=== PATIENT | female | born 1990 | race Caucasian/White ===

== ENCOUNTER 2024-02-23 01:58 | Emergency (ER) | payer BC, SELFPAY ==
[2024-02-23 02:01] VITALS: BP 134/78
--- NOTE | 2024-02-23 02:13 | ED.GENMED ---
History of Present Illness
<NORA Huynh - Last Filed: 02/23/24 02:23>
General
Chief Complaint: Abdominal Pain
Source: patient
Time Seen by Provider: 02/23/24 02:06
Nursing documentation reviewed up to this point in time: agreed with
History of Present Illness
History of Present Illness:
Pt is a 34 yo F who presents to the emergency department with abdominal pain that began around 8:30pm. Pt states that the pain began in her epigastric region when she was laying down and when to bed. She states that she woke up during the night due
to the pain being sharp and radiating to below her right scapula. She states that she took Pepto Bismol before going to bed and 1 Tums before arriving to the ED without any relief. Pt describes the pain as sharp. Pt also admits to nausea with the
pain. Pt denies fever, chills, vomiting, diarrhea, headache, chest pain.
Pt states that a similar episode happened around three years ago and that she did not seek medical attention due to being in another state at the time.
Review of Systems
<NORA Huynh - Last Filed: 02/23/24 02:23>
Review of Systems
Allergies reviewed?: Yes
Constitutional: Reports no symptoms
Respiratory: Reports no symptoms
Cardiac: Reports no symptoms
ABD/GI: Reports abdominal pain and nausea
: Reports no symptoms
Skin: Reports no symptoms
Neurological: Reports no symptoms
Phy Exam
<NORA Huynh - Last Filed: 02/23/24 02:23>
General Physical Exam
General Presentation: moderate distress
General age: appears stated age
General Skin: warm
General Habitus: normal
General Mental: alert
General Hydration: appears well hydrated
Cardiovascular Exam
Cardiovascular Exam: regular rate/rhythm
Pulmonary Exam
Pulmonary Exam: lungs clear
Gastrointestinal Exam
Gastrointestinal Exam: normal bowel sounds, soft, non distended and tender
Palpation: right upper quadrant: Severe tenderness (RUQ and epigastric region) and generalized: Severe tenderness (RUQ and epigastric region)
Course
<Shannon Valenzuela [facility] - Last Filed: 02/23/24 02:23>
Orders/Labs/Results
Orders:
Orders
02/23/24 02:18
Test Result ONCE
US Abdomen Complete/Upper Urgent
Comment:
Reason For Exam: ruq abd pain
02/23/24 03:25
Urinalysis Reflex To Culture Urgent
Date Specimen was Collected: 02/23/24
Time Specimen was Collected: 03:24
02/23/24 03:30
Complete Blood Count/With Diff Urgent
Comprehensive Metabolic Panel Urgent
HCG, Serum Qualitative Screen Urgent
Lipase Urgent
02/23/24 05:00
Pantoprazole [Protonix] 40 mg PO NOW STA
Sucralfate Suspension [Carafate Suspension] 1 gm PO NOW STA
Abnormal Lab Results
02/23/24
03:30
RBC 4.13 L 10^6/uL
(4.20-5.40)
MCH 31.2 H pg
(27.0-31.0)
MCHC 32.7 L g/dL
(33.0-37.0)
RDW 11.4 L %
(11.5-14.5)
Absolute Monos (auto) 0.7 H 10^3/uL
(0.1-0.6)
Glucose 100 H mg/dl
(70-99)
02/23/24 03:30
02/23/24 03:30
Vital Signs
Initial and Last Documented VS:
Initial Vital Signs
Temp Pulse Resp BP Pulse Ox
98.2 F 78 20 134/78 100
02/23/24 02:01 02/23/24 02:01 02/23/24 02:01 02/23/24 02:01 02/23/24 02:01
Last Documented Vital Signs
Temp Pulse Resp BP Pulse Ox
98.2 F 58 14 92/52 100
02/23/24 02:01 02/23/24 03:31 02/23/24 03:31 02/23/24 03:31 02/23/24 03:31
<Don Hand, DO - Last Filed: 02/23/24 05:07>
Orders/Labs/Results
Orders:
Orders
02/23/24 02:18
Test Result ONCE
US Abdomen Complete/Upper Urgent
Comment:
Reason For Exam: ruq abd pain
02/23/24 03:25
Urinalysis Reflex To Culture Urgent
Date Specimen was Collected: 02/23/24
Time Specimen was Collected: 03:24
02/23/24 03:30
Complete Blood Count/With Diff Urgent
Comprehensive Metabolic Panel Urgent
HCG, Serum Qualitative Screen Urgent
Lipase Urgent
02/23/24 05:00
Pantoprazole [Protonix] 40 mg PO NOW STA
Sucralfate Suspension [Carafate Suspension] 1 gm PO NOW STA
Abnormal Lab Results
02/23/24
03:30
RBC 4.13 L 10^6/uL
(4.20-5.40)
MCH 31.2 H pg
(27.0-31.0)
MCHC 32.7 L g/dL
(33.0-37.0)
RDW 11.4 L %
(11.5-14.5)
Absolute Monos (auto) 0.7 H 10^3/uL
(0.1-0.6)
Glucose 100 H mg/dl
(70-99)
02/23/24 03:30
02/23/24 03:30
Vital Signs
Initial and Last Documented VS:
Initial Vital Signs
Temp Pulse Resp BP Pulse Ox
98.2 F 78 20 134/78 100
02/23/24 02:01 02/23/24 02:01 02/23/24 02:01 02/23/24 02:01 02/23/24 02:01
Last Documented Vital Signs
Temp Pulse Resp BP Pulse Ox
98.2 F 58 14 92/52 100
02/23/24 02:01 02/23/24 03:31 02/23/24 03:31 02/23/24 03:31 02/23/24 03:31
<NORA Huynh - Last Filed: 02/23/24 02:23>
MDM/Problems Addressed
Differential Diagnosis Includes:
Cholecystis, acute pancreatitis, GERD
<NORA Huynh - Last Filed: 02/23/24 02:23>
*Critical Care Note
Total Time (30-74mins, 75-104mins- exclusive of procedures): Not Applicable
<Don Hand DO - Last Filed: 02/23/24 05:07>
Update Note
Update Note:
Ultrasound abdomen complete
IMPRESSION:
No acute findings
Gallbladder appears normal. No appreciable gallstones or sludge within the gallbladder
Gallbladder is distended, measuring up to 4.5 cm in diameter
Nonspecific. Can be seen with fasting state
No gallbladder wall thickening or pericholecystic fluid
Negative sonographic Warren's sign per report
No bile duct dilation.
Visualized pancreas and liver appear normal
Small echogenic nonshadowing focus in the left kidney, suggesting angiomyolipoma
Otherwise kidneys appear normal
Spleen appears normal
No appreciable free fluid
Report faxed directly to ER at 3:35 AM ET
ED Attending Note
<NORA Huynh - Last Filed: 02/23/24 02:23>
-
Portions of this chart may have been created with voice recognition software.� Occasional wrong word or��sound alike� substitutions may have occurred due to the inherent limitations of voice recognition software.
<Don Hand DO - Last Filed: 02/23/24 05:07>
ED Attending Note
Patient seen and examined by attending physician: Yes
I performed the substantive portion of visit, reviewed & personally made and approve the management plan that is documented in note by myself or STEPHANIE.: Yes
ED Attending Note:
Pleasant 34-year-old female presents with upper abdominal pain that radiates through to her back that began around 8:30 PM last evening. Denies chest pain or shortness of breath. She does have some nausea present. Pain was exacerbated by laying
down. She woke up with sharp pain that radiates through to her scapula. She did take some Pepto-Bismol and Tums prior to arrival and did not report any relief. Patient denies vomiting but does have some nausea. Denies shortness of breath. She
states that a similar episode happened 3 years ago. She was advised to follow-up with GI but due to insurance reasons was unable to.
Discharge Plan
Departure
Patient Disposition: Home (Routine Discharge)
Date of Disposition: 02/23/24
Time of Disposition: 05:02
Patient with high blood pressure during this ER visit?: Yes
Condition: Serious
Discharge Problem:
Abdominal pain, Gastric reflux syndrome
Prescriptions:
New
sucralfate [Carafate] 100 mg/mL suspension
10 ml PO ACHS Qty: 200 0RF
pantoprazole [Protonix] 40 mg tablet,delayed release (DR/EC)
40 mg PO DAILY Qty: 20 0RF
Referrals:
NONE,* [Family Provider] -
Ariel Ambrocio MD [Active] - As needed (Surgery)
Pooja Holloway MD [Active] - Call in 1-3 days for appt (GI)
Activity Restrictions/Additional Instructions:
It was a pleasure meeting you and taking part in your care. We hope for your continued healing and wellness.
Please read discharge instructions in their entirety. However, they are for general education and may not describe your exact diagnosis at discharge. Information on your ER visit and medical conditions were discussed with you along with appropriate
follow up information...
If indicated, please take your medications as instructed and indicated on discharge paperwork.
Please schedule a follow up appointment as directed. Call to schedule an appointment
Please return to the emergency department with ANY change in, persisting, or worsening of symptoms. If any of your symptoms do not improve, or persist, or become more severe within 6-12 hours, please return to the emergency department for further
care.
Please return to the emergency department if you develop a headache, neck pain/stiffness, fever greater than 100.4F, chest pain, shortness of breath, persistent nausea, vomiting, slurred speech, difficulty walking, numbness/tingling, weakness, signs
of infection or any other symptoms that are worrisome to you.
If you have any questions or concerns please do not hesitate to call the Hospital at or E-mail me directly at [email or web address]
Interventions
Interventions:
*Risk Screen - Suicide Last Done: 02/23/24 02:01
*General Assessment Last Done: 02/23/24 02:24
*Neglect/Abuse Screening Last Done: 02/23/24 02:01
ED- Fall Risk Assessment Last Done: 02/23/24 03:35
*ED COVID-19 Vaccine History Last Done: 02/23/24 02:24
BF-Xaczuu-Jdqjemdkgt Assessment Last Done: 02/23/24 02:29
Discharge Date and Time
Print Language: MALAYSIAN
[2024-02-23 02:24] VITALS: BMI 27.1
--- NOTE | 2024-02-23 02:25 | EDRN ---
Pt started with abd pain at 2030 in epigastric area and says her stomach felt distended. Pt took Pepto around 2330. At 0049 pt woke with pain radiating into her upper R back. Pain progressed to RLQ. Pt has had similar pain over past 6-8 years
with last episode about 2 years ago. Pain improved currently. In past, pt has medicated with pepto and Tums until pain subsided. Dinner was beef stew - no snacks/dessert. Pt went to a GI doctor when she was 26 years old and an US was ordered to
look at her US however insurance would not approve it so pt says she committed to eating healthier to avoid. Pt has nausea, no vomiting. No fever/cough, cp, sob, urinary symptoms. Pt has been burping.
[2024-02-23 03:31] VITALS: BP 92/52
[2024-02-23 03:38] LABS: Urine Albumin Negative (Neg - Trace); Urine Bilirubin Negative (Negative); Urine Character Clear (Clear); Urine Color Yellow; Urine Glucose Negative (Negative); Urine Ketone Negative (Negative); Urine Leukocyte Negative (Negative); Urine Nitrite Negative (Negative); Urine Occult Blood Negative (Negative); Urine Urobilinogen Negative (Neg - 1+)
[2024-02-23 03:40] LABS: % Basophils 0.5 % (0-2); % Eosinophils 1.1 % (0-6); % Immature Granulocytes 0.3 % (0-0.5); % Monocytes 7.4 % (1.7-9.3); % Neutrophils 67.7 % (42.2-75.2); Absolute Basophils 0.1 10^3/uL (0-0.2); Absolute Eosinophils 0.1 10^3/uL (0-0.7); Absolute Lymphocytes 2.1 10^3/uL (1.2-3.4); Absolute Monocytes 0.7 10^3/uL (0.1-0.6); Absolute Neutrophils 6.2 10^3/uL (1.4-6.5); Hematocrit 39.5 % (37.0-47.0); Hemoglobin 12.9 g/dL (12.0-16.0); Mean Corp Hgb Conc. 32.7 g/dL (33.0-37.0); Mean Corpuscular Hgb 31.2 pg (27.0-31.0); Mean Corpuscular Volume 95.6 fL (81.0-99.0); Mean Platelet Volume 8.8 fL (7.4-10.4); Nucleated Red Blood Cells % 0 %; Platelet Count 251 10^3/uL (130-400); Red Blood Cell Count 4.13 10^6/uL (4.20-5.40); Red Cell Dist. Width 11.4 % (11.5-14.5); White Blood Cell Count 9.2 10^3/uL (4.8-10.8)
[2024-02-23 03:53] LABS: HCG, Serum Qualitative Screen Negative
[2024-02-23 04:03] LABS: ALT (SGPT) 17 U/L (0-35); AST (SGOT) 27 U/L (14-36); Albumin 4.7 g/dl (3.5-5.0); Alkaline Phosphatase 39 U/L (38-126); Blood Urea Nitrogen 14 mg/dl (7-17); Calcium 9.6 mg/dl (8.4-10.2); Carbon Dioxide 26 mmol/L (22-30); Chloride 104 mmol/L (98-107); Estimated Creatinine Clearance 93 ml/min; Glucose 100 mg/dl (70-99); Lipase 193 U/L (23-300); Potassium 3.9 mmol/L (3.5-5.1); Sodium 140 mmol/L (135-145); Total Bilirubin 0.6 mg/dl (0.2-1.3); Total Protein 7.9 g/dl (6.3-8.2); eGFR > 60.00
[2024-02-23 05:00] VITALS: BP 95/62
[2024-02-23] MEDS: CARAFATE SUSPENSION 1 GM PO (05:15)
[2024-02-23] MEDS: PROTONIX 40 MG PO (05:15)
== END 2024-02-23 05:26 | disposition home or self-care (01) ==
LOC: EMR 01:58
PROVIDERS: EMERGENCY PHYSICIAN Student in an Organized Health Care Education/Training Program
DX: K21.9 Gastro-esophageal reflux disease without esophagitis (principal); R10.10 Upper abdominal pain, unspecified; R11.0 Nausea; M54.6 Pain in thoracic spine; R03.0 Elevated blood-pressure reading, without diagnosis of hypertension; G43.909 Migraine, unspecified, not intractable, without status migrainosus; Z91.048 Other nonmedicinal substance allergy status; Z86.16 Personal history of COVID-19; Z87.820 Personal history of traumatic brain injury
CPT/HCPCS: 99284; 76700; 80053; 81003; 83690; 84703; 85025